=== PATIENT | male | born 1990 | race Caucasian/White ===

== ENCOUNTER 2025-04-12 19:53 | Emergency (ER) | payer OTHER, SELFPAY ==
[2025-04-12] VITALS (14 sets, daily range): BP systolic 87–127; BP diastolic 53–84; PULSE 84; RESP 18; TEMP 37; O2SAT 95–100
--- NOTE | ~2025-04-12 | CT_ITS ---
History: Fall PROCEDURE: CT thoracic spine without intravenous contrast. COMPARISON: None TECHNIQUE: Multiple contiguous axial images of the thoracic spine were performed without the administration of i ntravenous contrast. DLP: 1412 mGy-cm FINDINGS: Preservation of the normal curvature of the thoracic spine is identified. No acute compression fractures are present. No soft tissue abnormality is noted. Linear alteration in the density of the posterior column to the anterior and middle columns within th e mid thoracic spine on sagittal series, to the right and left of midline, felt to be artifactual, ra ther than acute displaced fracture. Impression: No acute compression fractures, as detailed above. Reviewed, dictated and finalized at location A. Impression: No acute compression fractures, as detailed above.
--- NOTE | ~2025-04-12 | CT_ITS ---
CLINICAL INDICATION: Fall COMPARISON: . TECHNIQUE: An enhanced CT of the abdomen and pelvis was performed utilizing multislice spiral NeoChord ue reconstructed at 5 mm slice thickness. Coronal and sagittal reconstructions were performed. This CT examination was performed utilizing dose reduction techniques. DLP: mGy-cm FINDINGS/OBSERVATIONS: Lung: Calcified granuloma within the right middle lobe. The remainder of the lungs are clear. No contusion, pneumothorax or hemothorax. The heart is of normal size, without pericardial effusion. Mediastinum: No pathologically enlarged or morphologically suspicious lymph nodes are identified within the medias tinum, bilateral axilla, within the soft tissues of the anterior chest wall. Soft tissues of the chest: Unremarkable. Bones of the chest: No acute clavicular fracture. No acute rib fracture. No acute sternal fracture. No acute scapular fracture. Liver: The liver enhances homogeneously and is enlarged measuring 20 cm in longitudinal dimension.. No perihepatic fluid to suggest acute traumatic injury. Gallbladder and biliary system: The gallbladder is only minimally distended, but otherwise unremarkable. Pancreas: The pancreas enhances homogeneously, without ductal dilatation. No peripancreatic fluid is identified to suggest acute traumatic injury. Spleen: The spleen enhances homogeneously and is not enlarged Kidneys: The bilateral kidneys enhance symmetrically without hydronephrosis or renal calculi. No perirenal fluid is identified to suggest acute traumatic injury. Adrenal glands: Unremarkable. Gastrointestinal tract: Small hiatal hernia is present. Fecal stasis within the colon. No significant free fluid within the abdomen or pelvis. Appendix: The air-filled appendix is of normal caliber (axial series, images 178-187). Vasculature: No calcified atherosclerotic disease is present. No aneurysmal dilatation. Lymph nodes: Scattered nonpathologically enlarged lymph nodes within the root of the mesentery and within the retr operitoneum. Pelvic structures: The bladder is minimally distended and otherwise unremarkable. The prostate gland is not enlarged. Body wall and musculoskeletal: No significant degenerative disease detected within the thoracic or lumbar spine. No acute compression fractures. IMPRESSION: No hollow or solid visceral organ injury. No acute fracture. Reviewed, dictated and finalized at location A.
--- NOTE | ~2025-04-12 | CT_ITS ---
CLINICAL INDICATION: Fall. COMPARISON: None. TECHNIQUE: Computed tomography (CT) of the pelvis was performed without intravenous contrast. The dos e-length product was 1339.82 mGy-cm. FINDINGS/OBSERVATIONS: No acute pelvic fracture is identified. Trace degenerative disease within the bilateral sacroiliac joint spaces, right greater than left. Induration of the soft tissue overlying the left posterior iliac spine. Bowel loops are unremarkable. No free fluid within the pelvis. IMPRESSION: No acute fracture within the pelvis, as detailed above. Reviewed, dictated and finalized at location A.
--- NOTE | ~2025-04-12 | CT_ITS ---
History: Fall PROCEDURE: CT head without contrast. COMPARISON: None TECHNIQUE: Axial imaging of the head performed from the skull base to the vertex without IV contrast. Sagittal a nd coronal reformations obtained. DLP: 681 mGy-cm FINDINGS: The ventricles are normal in size, shape and position. There is no mass, mass effect or midline shift. There is no abnormal extra-axial fluid collection or intracranial hemorrhage. Visualized paranasal sinuses are clear. The mastoid air cells are well aerated. Asymmetry of the right occipital bone with an irregular lucency which may represent a cranial suture, but for which an acute fracture cannot be excluded, given the mechanism of trauma. Impression: No acute intracranial hemorrhage or suspicious mass effect. Asymmetry of the right occipital bone with irregular lucency which may represent a cranial suture, bu t given the mechanism of trauma and acute fracture may have a similar appearance. Clinical correlatio n is needed for point tenderness in this location (approximately 2 to 3 cm posterior to the right pin na), the patient is clinically able. Reviewed, dictated and finalized at location A. Impression: No acute intracranial hemorrhage or suspicious mass effect. Asymmetry of the right occipital bone with irregular lucency which may represen t a cranial suture, but given the mechanism of trauma and acute fracture may sanderson ve a similar appearance. Clinical correlation is needed for point tenderness in this location (approximately 2 to 3 cm posterior to the right pinna), the mario ent is clinically able.
--- NOTE | ~2025-04-12 | CT_ITS ---
History: Fall PROCEDURE: CT cervical spine and facial bones without intravenous contrast. COMPARISON: None TECHNIQUE: Multiple contiguous axial images of the cervical spine and facial bones were performed without the ad ministration of intravenous contrast. DLP: 584 mGy-cm FINDINGS: Straightening and slight reversal of the normal curvature of the cervical spine is identified, likely muscular in origin. No acute fractures are present within the cervical spine. The bilateral lung apices are unremarkable. No soft tissue abnormality is present. The airway is patent. No acute facial bone fracture. Impression: Straightening and slight reversal of the normal curvature of the cervical spine, likely muscular in o rigin. No acute fracture within the cervical spine or the facial bones. Reviewed, dictated and finalized at location A. Impression: Straightening and slight reversal of the normal curvature of the cervical spine , likely muscular in origin. No acute fracture within the cervical spine or the facial bones.
--- NOTE | ~2025-04-12 | CT_ITS ---
History: Fall PROCEDURE: CT lumbar spine without intravenous contrast. COMPARISON: None TECHNIQUE: Multiple contiguous axial images of the lumbar spine were performed without the administration of int ravenous contrast. DLP: 1339 mGy-cm FINDINGS: Preservation of the normal lordotic curvature of the lumbar spine is identified. No acute compression fractures are present. No soft tissue abnormality is noted. Impression: No acute compression fracture. Reviewed, dictated and finalized at location A. Impression: No acute compression fracture.
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
[2025-04-12] MEDS: ACETAMINOPHEN 500 MG TABLET 1000 MG PO (20:15)
[2025-04-12 20:37] LABS: Hematocrit 42.3 % (40.0-54.0); Hemoglobin 14.2 g/dL (14.0-18.0); Mean Corpuscular HGB Conc 33.6 g/dL (32-36); Mean Corpuscular Hemoglobin 30.5 pg (27.0-31.0); Mean Corpuscular Volume 90.8 fL (78.0-102.0); Mean Platelet Volume 9.6 fl (8.7-11.0); Platelet Count Result 240 K/mm3 (150-420); Red Blood Count 4.66 M/mm3 (4.70-6.10); White Blood Count 5.8 K/mm3 (4.8-10.8)
[2025-04-12 20:48] LABS: Alanine Aminotransferase 43 U/L (6-50); Albumin Level 3.7 g/dL (3.5-5.1); Alkaline Phosphatase 88 U/L (38-126); Anion Gap 4 mmol/L (4-12); Aspartate Amino Transferase 41 U/L (17-59); Bilirubin,Total 0.4 mg/dL (0.2-1.3); Blood Urea Nitrogen 14 mg/dL (9-20); Calcium 8.5 mg/dL (8.4-10.2); Carbon Dioxide 24 mmol/L (22-30); Chloride 112 mmol/L (98-107); Estimated CRCL calculation 107 ml/min; Estimated Glomerular Filt Rate > 60; Glucose 71 mg/dL (65-110); Osmolality Calculated 288 mOsm/kg (285-295); Potassium 3.4 mmol/L (3.4-5.0); Sodium 140 mmol/L (137-145); Total Protein 6.6 g/dL (6.3-8.2)
[2025-04-12 20:49] LABS: INR 0.9
[2025-04-12 20:51] LABS: Partial Thromboplastin Time 25.6 Sec (23.9-30.70)
[2025-04-12] MEDS: SODIUM CHLORIDE 0.9% IV 1,000 ML 999 ML IV CONT (21:12)
[2025-04-12] MEDS: TETANUS,DIPHTHERIA,AC PERTUSSIS ADULT 0.5 ML (ADACEL) IM (21:13)
[2025-04-12] MEDS: fentaNYL CITRATE INJ (*CRX) 100 MCG/2 ML VIAL 50 MCG IV PUSH (21:49)
== END 2025-04-12 23:40 | disposition home or self-care (01) ==
PROVIDERS: Emergency Provider Emergency Medicine; PCP Family Medicine
DX: S00.83XA Contusion of other part of head, initial encounter (principal); S16.1XXA Strain of muscle, fascia and tendon at neck level, initial encounter; S00.91XA Abrasion of unspecified part of head, initial encounter; S50.02XA Contusion of left elbow, initial encounter; Z23 Encounter for immunization; V87.8XXA Person injured in other specified noncollision transport accidents involving motor vehicle (traffic), initial encounter; Y99.0 Civilian activity done for income or pay
CPT/HCPCS: 36415; 70450; 70486; 71260; 72125; 72128; 72131; 72192; 73080; 74177; 80053; 85027; 85610; 85730; 90471; 90715; 96361; 96374; 99284; A9270; J3010; J7030; Q9967